=== PATIENT | male | born 1945 | race Caucasian/White ===

== ENCOUNTER 2022-04-08 14:15 | Outpatient (CLI) | payer OTHER, SELFPAY ==
--- NOTE | 2022-04-08 14:30 | MR_ITS ---
[address] [address] Phone:?[phone] Fax:?[phone] Referring Physician Information: Brenden Martines [id number] [facility] [place] [address] Phone:?[phone] Fax:?[phone] Patient:?Burton Nicole D.O.B:?1945 Sex:?Male Phone:?[phone] [facility] MRN:?[id number] Exam Date:?04/08/2022 ? EXAM: MR PROSTATE WITHOUT AND WITH CONTRAST CLINICAL INFORMATION: Nodular prostate gland. COMPARISON: None. TECHNICAL INFORMATION: Examination was performed on a 1.5T magnet. High- resolution T1 axial, T2 axial, T2 FSE sagittal and T2 FSE coronal images were obtained through the prostate gland and seminal vesicles. Diffusion images were obtained in the axial plane. 20 mL of Dotarem were injected with dynamic enhanced images of the prostate gland in the axial plane. T1 fat saturation sagittal and coronal images were obtained postinjection. Images were analyzed with 3-D postprocessing online under concurrent physician supervision using a separate Surveying And Mapping (SAM) workstation. INTERPRETATION: The prostate gland measures 4.5 x 4.3 x 4.2 cm (TV x AP x SI) for an estimated volume of 46 cc. Transitional and central zones: There is moderate glandular and stromal hyperplasia with well encapsulated BPH nodules (PI-RADS 2), including a 1.9 x 1.5 cm encapsulated nodule in the right midgland (Se 6 Im 16). No focal CZ/TZ lesions concerning for clinically significant adenocarcinoma. Peripheral zones: No focal PZ lesions concerning for clinically significant adenocarcinoma (PI-RADS 1). Pelvis: No aimee transcapsular disease. Neurovascular bundles and seminal vesicles appear intact. No pelvic lymphadenopathy or evident bone marrow disease. CONCLUSION: Mild prostatomegaly with BPH, including a prominent BPH nodule in the right midgland. No suspicious (PI-RADS 3, 4, or 5) lesions identified. No aimee transcapsular, deana, or skeletal disease in the pelvis. PI-RADS Assessment Categories: Score 1 = very low; clinically significant disease highly unlikely Score 2 = low; clinically significant disease is unlikely Score 3 = intermediate; clinically significant disease is equivocal Score 4 = high; clinically significant disease is likely Score 5 = very high; clinically significant disease is highly likely Electronically signed on 04/09/2022 8:52:00 AM by Marco A Valadez M.D.
== END 2022-04-08 14:16 | disposition home or self-care (01) ==
LOC: MRI 14:20
PROVIDERS: PCP Physician Assistant
DX: R97.20 Elevated prostate specific antigen [PSA] (principal)
CPT/HCPCS: 72197; A9575